=== PATIENT | female | born 1950 | race African-American/Black ===

== ENCOUNTER 2018-11-30 18:37 | Emergency (ER) | payer OTHER, BC ==
[2018-11-30] MEDS ORDERED: METHOCARBAMOL 500 MG TABLET PO ONE (19:24)
[2018-11-30] MEDS ORDERED: IBUPROFEN 600 MG TABLET (FP) PO ONE (19:24)
--- NOTE | 2018-11-30 19:24 | PDOC ---
Rapid Medical Evaluation Time Seen by Provider: 11/30/18 19:19 Medical Evaluation: Allergies Allergy/AdvReac Type Severity Reaction Status Date / Time tomato Allergy Verified 02/04/16 17:00 11/30/18 19:20 I have performed a brief in-person evaluation of this patient. The patient presents with a chief complaint of: L sided neck and shoulder pain for 3 days, which started after she was cleaning her closet on Monday. H/o arthritis, sciatica. No CP/SOB, no trauma/fall. Took 1 naprosyn at 5am, did not help with pain I have ordered the following: Motrin, robaxin The patient will proceed to the ED for further evaluation. Discharge Disposition - Diagnosis Muscle ache - Referrals - Patient Instructions - Post Discharge Activity
[2018-11-30 19:29] VITALS: BP 140/73; PULSE 66; TEMP 98.3; BMI 33.7
[2018-11-30] MEDS ORDERED: ACETAMINOPHEN 500 MG TABLET (FP) PO ONE (19:40)
[2018-11-30] MEDS ORDERED: LIDOCAINE 5% TOPICAL PATCH TP ONE (19:40)
[2018-11-30] MEDS ORDERED: ACETAMINOPHEN 500 MG TABLET (FP) ONE (19:42)
[2018-11-30] MEDS ORDERED: LIDOCAINE 5% TOPICAL PATCH ONE (19:42)
--- NOTE | 2018-11-30 19:49 | PDOC ---
History of Present Illness - General Chief Complaint: Pain Stated Complaint: NECK/SHOULDER PAIN Time Seen by Provider: 11/30/18 19:19 History Source: Patient - History of Present Illness Timing/Duration: other Past History - Past Medical History Allergies/Adverse Reactions: Allergies Allergy/AdvReac Type Severity Reaction Status Date / Time tomato Allergy Verified 11/30/18 19:24 Home Medications: Ambulatory Orders Atenolol/Chlorthalidone [Atenolol-Chlorthalidone 100-25] 1 tab PO HS 04/22/11 Norvasc 10mg 1 tab PO HS 04/22/11 Tylenol 325 mg PO PRN 04/22/11 Vitamins 1 tab PO DAILY 04/22/11 Mag Hydrox/Al Hydrox/Simeth [Mylanta Suspension -] 30 ml PO Q6H PRN #1 bottle Ranitidine HCl [Zantac] 150 mg PO BID PRN #20 tablet 10/30/15 Sucralfate [Carafate] 1 gm PO BID PRN #10 tablet 10/30/15 Acetaminophen [Tylenol -] 1,000 mg PO Q6H #30 tablet 11/30/18 Lidocaine 5% Patch [Lidoderm Patch -] 1 patch TP DAILY #7 patch 11/30/18 Anemia: No Asthma: No Cancer: No Cardiac Disorders: No CVA: No COPD: No CHF: No Dementia: No Diabetes: No GI Disorders: Yes (ABDOMINAL PAIN) Disorders: No HTN: Yes Hypercholesterolemia: No Liver Disease: No Seizures: No Thyroid Disease: No - Surgical History Abdominal Surgery: Yes (TUBAL LIGATION) Appendectomy: No Cardiac Surgery: Yes (BOTH ETES WITH IOL) Cholecystectomy: No Lung Surgery: Yes (LEAKY VALVE) Neurologic Surgery: No Orthopedic Surgery: No - Immunization History Immunization Up to Date: Yes - Psycho Social/Smoking Cessation Hx Smoking History: Never smoked Have you smoked in the past 12 months: No Hx Alcohol Use: No Drug/Substance Use Hx: No Substance Use Type: None Hx Substance Use Treatment: No Review of Systems - Review of Systems Constitutional: No: Chills, Fever Respiratory: No: Shortness of Breath Cardiac (ROS): No: Chest Pain Musculoskeletal: Yes: Joint Pain, Neck Pain. No: Joint Swelling Neurological: No: Numbness, Tingling, Weakness *Physical Exam - Vital Signs Last Vital Signs Temp Pulse Resp BP Pulse Ox 98.3 F 66 18 140/73 99 11/30/18 19:21 11/30/18 19:21 11/30/18 19:21 11/30/18 19:21 11/30/18 19:21 - Physical Exam General Appearance: Yes: Appropriately Dressed. No: Apparent Distress HEENT: positive: Normal Voice Neck: positive: Supple. negative: Tender, Decreased range of motion Respiratory/Chest: positive: Lungs Clear, Normal Breath Sounds. negative: Respiratory Distress Cardiovascular: positive: Regular Rate, S1, S2 Musculoskeletal: positive: Normal Inspection, Vertebral Tenderness, Other (ttp to L shoulderblade, no rash, FROMI to LUE and cspine) Extremity: positive: Normal Inspection Integumentary: positive: Dry, Warm Neurologic: positive: Fully Oriented, Alert, Normal Mood/Affect, Motor Strength 5/5 Medical Decision Making - Medical Decision Making 11/30/18 19:41 68-year-old female history of hypertension, hyperlipidemia, arthritis, tendinitis to L hand, here with L shoulder pain x several days. Hurts to move and lift on the L side. No trauma. No sensory changes or upper extremity weakness. Taking naproxen and gabapentin with no relief. No chest pain or shortness of breath See exam M/l MSK L shoulder pain H/o arthritis, tendinitis No trauma No CP/SOB Exam remarkable for + ttp over L shoulder blade -Dc w/ pain control -PMD f/u Discharge - Discharge Information Problems reviewed: Yes Clinical Impression/Diagnosis: Shoulder pain Qualifiers: Chronicity: acute Laterality: left Qualified Code(s): M25.512 - Pain in left shoulder Condition: Good Disposition: HOME - Additional Discharge Information Prescriptions: Acetaminophen [Tylenol -] 1,000 mg PO Q6H #30 tablet Lidocaine 5% Patch [Lidoderm Patch -] 1 patch TP DAILY #7 patch - Follow up/Referral Referrals: Mary Dietrich [Primary Care Provider] - - Patient Discharge Instructions Patient Printed Discharge Instructions: DI for Shoulder Pain Additional Instructions: Take medication as directed for pain and follow up with your PMD - Post Discharge Activity
[2018-11-30] MEDS ORDERED: LIDOCAINE PATCH REMOVAL MC SCH (22:00)
== END 2018-11-30 19:51 | disposition home or self-care (01) ==
LOC: JER 18:37 → JERFT 18:37
DX: M25.512 Pain in left shoulder (principal); M54.2 Cervicalgia; X50.1XXA Overexertion from prolonged static or awkward postures, initial encounter; Y93.E9 Activity, other interior property and clothing maintenance; Y92.038 Other place in apartment as the place of occurrence of the external cause; Y99.8 Other external cause status; I10 Essential (primary) hypertension; E78.5 Hyperlipidemia, unspecified; M12.9 Arthropathy, unspecified; Z91.018 Allergy to other foods
CPT/HCPCS: 99281-25

== ENCOUNTER 2018-12-12 08:16 | Day surgery (SDC) | payer OTHER, BC ==
[2018-12-11 14:45] VITALS: BMI 34.9
[2018-12-12 11:12] VITALS: TEMP 97.8
[2018-12-12 11:30] VITALS: PULSE 65
[2018-12-12 12:38] VITALS: BP 128/70
--- NOTE | 2018-12-13 17:23 | PATH ---
Surgical Pathology Report Patient Name: JILL MONTES [facility]. Rec. #: [id number] /Age/Gender: 1950 (Age: 68) / F Account: [id number] Location: ASU-ENDOSCOPY Taken: 12/12/2018 Received: 12/12/2018 Reported: 12/13/2018 Physicians: Nory Mccormack M.D. Specimen(s) Received A: DUODENUM, SECOND PORTION AND BULB B: ANTRAL ULCERS C: ESOPHAGUS Clinical History Dyspepsia, early satiety, history of colon polyps, family history of colon cancer, weight loss Postoperative diagnosis: Antral ulcers, hiatal hernia, Schatzki's ring, diverticulosis, hemorrhoids Final Diagnosis A. DUODENUM, SECOND PORTION AND BULB, BIOPSY: DUODENAL MUCOSA WITHOUT SIGNIFICANT PATHOLOGIC FINDINGS. B. STOMACH, ANTRAL ULCER, BIOPSY: GASTRIC ANTRAL MUCOSA WITH MILD CHRONIC GASTRITIS. IMMUNOHISTOCHEMICAL STAIN FOR H. PYLORI IS NEGATIVE. C. GE JUNCTION/ SCHATZKI'S RING, BIOPSY: SQUAMOCOLUMNAR MUCOSA WITH MILD CHRONIC INFLAMMATION AND CHANGES OF MODERATE REFLUX ESOPHAGITIS. NO INTESTINAL METAPLASIA OR DYSPLASIA IDENTIFIED. Electronically Signed Suzanne French M.D. Gross Description A. Received in formalin, labeled "second portion and bulb of duodenum biopsy" are 4 jovel, irregular portions of soft tissue ranging from 0.2-0.4 cm. in greatest dimension. The specimens are submitted in toto in one cassette. B. Received in formalin, labeled "antral ulcer biopsy" are 4 jovel, irregular portions of soft tissue ranging from 0.3-0.4 cm. in greatest dimension. The specimens are submitted in toto in one cassette. C. Received in formalin, labeled "GE junction/Schatzki's ring" are 3 jovel, irregular portions of soft tissue ranging from 0.3-0.4 cm. in greatest dimension. The specimens are submitted in toto in one cassette. 12/12/201812/12/2018
== END 2018-12-12 11:55 | disposition home or self-care (01) ==
LOC: JASU-ENDO 08:16
PROVIDERS: ATTEND Internal Medicine Gastroenterology
PROC: 0DB48ZX Excision of Esophagogastric Junction, Via Natural or Artificial Opening Endoscopic, Diagnostic (ICD-10-PCS; 2018-12-12)
PROC: 0DB68ZX Excision of Stomach, Via Natural or Artificial Opening Endoscopic, Diagnostic (ICD-10-PCS; 2018-12-12)
PROC: 0DJD8ZZ Inspection of Lower Intestinal Tract, Via Natural or Artificial Opening Endoscopic (ICD-10-PCS; principal; 2018-12-12 09:45)
DX: Z12.11 Encounter for screening for malignant neoplasm of colon (principal); Z86.010 Personal history of colon polyps; Z80.0 Family history of malignant neoplasm of digestive organs; K57.30 Diverticulosis of large intestine without perforation or abscess without bleeding; K64.8 Other hemorrhoids; K22.2 Esophageal obstruction; K44.9 Diaphragmatic hernia without obstruction or gangrene; K21.9 Gastro-esophageal reflux disease without esophagitis; K25.9 Gastric ulcer, unspecified as acute or chronic, without hemorrhage or perforation; I10 Essential (primary) hypertension; E66.9 Obesity, unspecified
CPT/HCPCS: 43239; G0105

== ENCOUNTER 2018-12-19 03:46 | Observation (INO) | payer OTHER, BC ==
--- NOTE | 2018-12-19 04:17 | PDOC ---
Attending Attestation - Resident Resident Name: PascualejAp scott - ED Attending Attestation I have performed the following: I have examined & evaluated the patient, The case was reviewed & discussed with the resident, I agree w/resident's findings & plan - HPI HPI: 12/19/18 05:53 see resident hpi - Physicial Exam PE: 12/19/18 05:53 agree with resident exam - Medical Decision Making 12/19/18 05:53 68-year-old female with intermittent chest pains, right now left status post endoscopy 1 week ago Due to patient's history of hypertension and patient's age she will be held for observation A CTA of the chest has been ordered due to dyspnea noted on exertion in the emergency department Plan to admit to medical service
[2018-12-19] MEDS ORDERED: FAMOTIDINE 20 MG/50 ML IVPB 20 MG/50 ML MG IVPB ONE ×2 (04:19→04:31)
[2018-12-19] MEDS ORDERED: SODIUM CHLORIDE 1,000 ML IV STA (04:20)
--- NOTE | 2018-12-19 04:25 | PDOC ---
History of Present Illness - History of Present Illness Initial Comments: 12/19/18 04:21 Ms. Huynh is a 68 yo female w/ pmh of HTN and HLD who presents for evaluation of chest pain. Patient reports she began to have right sided chest pain following an endoscopy last week w/ GI Dr. Mccormack (w/ resultant ulcer identified). Patient reports symptoms persisted until 2 days ago when they "switched to the left side." Patient presents today as symptoms were worse when she woke up this morning at approximately 1am. Patient was provided with pantoprazole 40mg post procedure however has not taken it until yesterday. The patient denies shortness of breath, headache and dizziness. Denies fever, chills, nausea, vomit, diarrhea and constipation. Denies dysuria, frequency, urgency and hematuria. <Ap Whitlock - Last Filed: 12/19/18 07:08> <Eliel Pulliam - Last Filed: 12/19/18 08:39> - General Stated Complaint: CHEST DISCOMFORT/NAUSEA Time Seen by Provider: 12/19/18 04:17 Past History - Past Medical History Anemia: No Asthma: No Cancer: No Cardiac Disorders: No CVA: No COPD: No CHF: No Dementia: No Diabetes: No GI Disorders: Yes (COLON POLYPS, H.PYLORI GASTRITIS) Disorders: No HTN: Yes Hypercholesterolemia: Yes Liver Disease: No Seizures: No Thyroid Disease: No - Surgical History Abdominal Surgery: Yes (TUBAL LIGATION) Appendectomy: No Cardiac Surgery: No Cholecystectomy: No Lung Surgery: No Neurologic Surgery: No Orthopedic Surgery: No - Immunization History Immunization Up to Date: Yes - Psycho Social/Smoking Cessation Hx Smoking History: Never smoked Have you smoked in the past 12 months: No Hx Alcohol Use: No Drug/Substance Use Hx: No Substance Use Type: None Hx Substance Use Treatment: No <Ap Whitlock - Last Filed: 12/19/18 07:08> <Eliel Pulliam - Last Filed: 12/19/18 08:39> - Past Medical History Allergies/Adverse Reactions: Allergies Allergy/AdvReac Type Severity Reaction Status Date / Time tomato Allergy Verified 12/19/18 04:41 Home Medications: Ambulatory Orders Amlodipine Besylate [Norvasc -] 10 mg PO DAILY 12/11/18 Atenolol [Tenormin -] 100 mg PO DAILY 12/11/18 Fenofibrate Nanocrystallized [Fenofibrate] 48 mg PO HS 12/11/18 Review of Systems - Review of Systems Comments:: 12/19/18 04:28 GENERAL/CONSTITUTIONAL: No fever or chills. No weakness. HEAD, EYES, EARS, NOSE AND THROAT: No change in vision. No ear pain or discharge. No sore throat. CARDIOVASCULAR: +Chest pain as described. No shortness of breath RESPIRATORY: No cough, wheezing, or hemoptysis. GASTROINTESTINAL: No nausea, vomiting, diarrhea or constipation. GENITOURINARY: No dysuria, frequency, or change in urination. MUSCULOSKELETAL: No joint or muscle swelling or pain. No neck or back pain. SKIN: No rash NEUROLOGIC: No headache, vertigo, loss of consciousness, or change in strength/ sensation. ENDOCRINE: No increased thirst. No abnormal weight change HEMATOLOGIC/LYMPHATIC: No anemia, easy bleeding, or history of blood clots. ALLERGIC/IMMUNOLOGIC: No hives or skin allergy. <Ap Whitlock - Last Filed: 12/19/18 07:08> *Physical Exam - Physical Exam Comments: 12/19/18 04:28 GENERAL: Awake, alert, and fully oriented, in no acute distress HEAD: No signs of trauma, normocephalic, atraumatic EYES: PERRLA, EOMI, sclera anicteric, conjunctiva clear ENT: Auricles normal inspection, hearing grossly normal, nares patent, oropharynx clear without exudates. Moist mucosa NECK: Normal ROM, supple, no lymphadenopathy, JVD, or masses LUNGS: No distress, speaks full sentences, clear to auscultation bilaterally HEART: Regular rate and rhythm, normal S1 and S2, no murmurs, rubs or gallops, peripheral pulses normal and equal bilaterally. ABDOMEN: Soft, nontender, normoactive bowel sounds. No guarding, no rebound. No masses EXTREMITIES: Normal inspection, Normal range of motion, no edema. No clubbing or cyanosis. NEUROLOGICAL: Cranial nerves II through XII grossly intact. Normal speech, normal gait, no focal sensorimotor deficits SKIN: Warm, Dry, normal turgor, no rashes or lesions noted. <Ap Whitlock - Last Filed: 12/19/18 07:08> - Vital Signs Last Vital Signs Temp Pulse Resp BP Pulse Ox 98.1 F 64 18 164/71 100 12/19/18 04:34 12/19/18 06:59 12/19/18 06:59 12/19/18 06:59 12/19/18 06:59 <Eliel Pulliam - Last Filed: 12/19/18 08:39> ED Treatment Course - LABORATORY CBC & Chemistry Diagram: 12/19/18 04:30 12/19/18 04:30 <Ap Whitlock - Last Filed: 12/19/18 07:08> - LABORATORY CBC & Chemistry Diagram: 12/19/18 04:30 12/19/18 04:30 - ADDITIONAL ORDERS Additional order review: Laboratory Results 12/19/18 12/19/18 04:30 04:30 PT with INR 11.80 INR 1.00 PTT (Actin FS) 30.5 Sodium 142 Potassium 3.2 L Chloride 107 Carbon Dioxide 26 Anion Gap 9 BUN 9.4 Creatinine 0.9 Est GFR (CKD-EPI)AfAm 75.61 Est GFR (CKD-EPI)NonAf 65.24 Random Glucose 107 H Calcium 8.3 L Total Bilirubin 0.4 AST 13 L ALT 14 Alkaline Phosphatase 71 Creatine Kinase 109 Troponin I < 0.02 Total Protein 6.7 Albumin 3.6 12/19/18 04:30 RBC 4.28 MCV 88.5 MCHC 32.8 RDW 13.4 MPV 9.0 Neutrophils % 59.6 D Lymphocytes % 28.5 D Monocytes % 7.9 Eosinophils % 2.6 Basophils % 1.4 - Medications Given in the ED: ED Medications Discontinued Medications Generic Name Dose Route Start Last Admin Trade Name Brijeshq PRN Reason Stop Dose Admin Famotidine/Sodium Chloride 20 mg in 50 mls @ 100 mls/hr 12/19/18 04:19 04:41 Pepcid 20 Mg Premixed Ivpb - IVPB 12/19/18 04:48 100 mls/hr ONCE ONE Administration Sodium Chloride 1,000 mls @ 1,000 mls/hr 12/19/18 04:20 12/19/18 04:41 Normal Saline - IV 12/19/18 05:19 1,000 mls/hr ASDIR STA Administration <Eliel Pulliam - Last Filed: 12/19/18 08:39> Medical Decision Making - Medical Decision Making 12/19/18 04:56 Ms. Huynh is a 68 yo female w/ pmh as described who presents for evaluation of several day history of migrating chest pain in the setting of recent endoscopic procedure and medication non-compliance for identified ulcer. Will evaluate patient for cardiac cause of pain w/ cardiac labs, EKG, and CXR for r/o sequelae from procedure. Medication given for suspected gastric etiology. Patient EKG normal sinus rhythm. Prolonged QT at 485 QTc. Further evaluation pending. 12/19/18 05:29 Patient noted to be very short of breath following trip to bathroom. Decision made to evaluate with Chest CTA given recent procedure. 12/19/18 06:40 Patient labs grossly wnl. Patient exam pending chest CTA read for further dispo. 12/19/18 07:07 Patient signed out to Dr. Pulliam for further evaluation. <Ap Whitlock - Last Filed: 12/19/18 07:08> Discharge - Discharge Information Problems reviewed: Yes <Ap Whitlock - Last Filed: 12/19/18 07:08> - Discharge Information Problems reviewed: Yes - Admission Yes <Eliel Pulliam - Last Filed: 12/19/18 08:39> - Discharge Information Clinical Impression/Diagnosis: Chest pain Qualifiers: Chest pain type: unspecified Qualified Code(s): R07.9 - Chest pain, unspecified Condition: Fair - Follow up/Referral Referrals: Mary Dietrich [Primary Care Provider] - - Patient Discharge Instructions - Post Discharge Activity
[2018-12-19 04:52] LABS: BASO % 1.4 % (0-2.0); EOS % 2.6 % (0-4.5); HEMATOCRIT 37.9 % (32.4-45.2); HEMOGLOBIN 12.4 GM/dL (10.7-15.3); LYMPH % 28.5 % (8-40); MCHC 32.8 g/dl (32.0-36.0); MEAN CELL VOLUME 88.5 fl (80-96); MONO % 7.9 % (3.8-10.2); NEUT % 59.6 % (42.8-82.8); PLATELET COUNT 230 K/MM3 (134-434); RBC 4.28 M/mm3 (3.60-5.2); RDW 13.4 % (11.6-15.6); WHITE BLOOD COUNT 8.3 K/mm3 (4.0-10.0)
[2018-12-19 05:09] LABS: PROTHROMBIN TIME (PATIENT) 11.8 SEC (9.7-13.0)
[2018-12-19 05:12] LABS: ACTIVATED PTT 30.5 SECONDS (25.2-36.5)
[2018-12-19 06:09] LABS: ALBUMIN 3.6 g/dl (3.4-5.0); ALK PHOS 71 U/L (45-117); ANION GAP 9 MMOL/L (8-16); BILIRUBIN,TOTAL 0.4 mg/dL (0.2-1); BLOOD UREA NITROGEN 9.4 mg/dL (7-18); CALCIUM 8.3 mg/dL (8.5-10.1); CHLORIDE 107 mmol/L (98-107); CO2 26 mmol/L (21-32); CREATININE 0.9 mg/dL (0.55-1.3); GLUCOSE,RANDOM 107 mg/dL (74-106); POTASSIUM 3.2 mmol/L (3.5-5.1); SGOT/AST 13 U/L (15-37); SGPT/ALT 14 U/L (13-61); SODIUM 142 mmol/L (136-145); TOT PROT 6.7 g/dl (6.4-8.2)
--- NOTE | 2018-12-19 09:23 | HP ---
CHIEF COMPLAINT: chest pain PCP: Dr. Dietrich HISTORY OF PRESENT ILLNESS: 68F w/ pmhx of HTN, HLD, arthritis presents in the ED for chest pain. Pt states pain started on the R side yesterday morning after eating breakfast and was intermittent throughout the day lasting 10 min at time. Pain then traveled to the left side after eating baked chicken for dinner. States she woke up at 1am last night due to L sided chest pain after which she took 2 baby aspirin and showered to try and alleviate the pain. It persisted intermittently throughout the rest of the night. Pt admits to having similar left sided chest pain in the past about 6 months ago, but did not have it evaluated back then as it did not persist. Of note, she recently underwent an EGD and colonoscopy 1 week ago and was told she had stomach ulcers. Pt was advised by Dr. 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 Additionally, she admits to some difficulty swallowing since her procedure last week and has been mainly eating apple sauce. Admits to mild headache and mild sob due to the chest pain. Also admits to some mild abd discomfort due to gas/constipation, last bowel movement was prior to colonoscopy. Denies dizziness, f/c, urinary symptoms. 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, former patient care secretary Lives with son in apt Allergies tomato Allergy (Verified 12/19/18 04:41) HOME MEDICATIONS: Home Medications Medication Instructions Recorded Amlodipine Besylate [Norvasc -] 10 mg PO DAILY 12/11/18 Atenolol [Tenormin -] 100 mg PO DAILY 12/11/18 Fenofibrate Nanocrystallized 48 mg PO HS 12/11/18 [Fenofibrate] Gabapentin 600 mg PO BID 12/19/18 Pantoprazole Sodium 40 mg PO DAILY 12/19/18 REVIEW OF SYSTEMS CONSTITUTIONAL: Absent: fever, chills, diaphoresis, generalized weakness, malaise, loss of appetite, weight change HEENT: +difficulty swallowing Absent: rhinorrhea, nasal congestion, throat pain, throat swelling, mouth swelling, ear pain, eye pain, visual changes CARDIOVASCULAR: +chest pain Absent: syncope, palpitations, irregular heart rate, lightheadedness, peripheral edema RESPIRATORY: +shortness of breath Absent: cough, , dyspnea with exertion, orthopnea, wheezing, stridor, hemoptysis GASTROINTESTINAL: Absent: abdominal pain, abdominal distension, nausea, vomiting, diarrhea, constipation, melena, hematochezia GENITOURINARY: Absent: dysuria, frequency, urgency, hesitancy, hematuria, flank pain, genital pain MUSCULOSKELETAL: Absent: myalgia, arthralgia, joint swelling, back pain, neck pain ENDOCRINE: Absent: unexplained weight gain, unexplained weight loss, heat intolerance, cold intolerance NEUROLOGIC: Absent: headache, focal weakness or paresthesias, dizziness, unsteady gait, seizure, mental status changes, bladder or bowel incontinence PHYSICAL EXAMINATION Vital Signs - 24 hr 12/19/18 12/19/18 04:34 06:59 Temperature 98.1 F Pulse Rate 69 Pulse Rate [ 64 Left Radial] Respiratory 15 18 Rate Blood Pressure 166/52 L Blood Pressure 164/71 [Left Arm] O2 Sat by Pulse 99 100 Oximetry (%) GENERAL: AAOx3. Pleasant, well-appearing female. NAD. HEENT: AT/NC. EOMI. MMM. Enlarged tonsils bilaterally. No pharyngeal erythema. NECK: Normal range of motion, supple without lymphadenopathy, JVD, or masses. LUNGS: CTA B/L. Symmetric chest rise. No wheezes, rales, rhonchi noted. HEART: RRR. Normal S1, S2. No murmurs noted. No reproducible chest tenderness. ABDOMEN: Obese. Soft, NT/ND. Normoactive bowel sounds in all 4Q's. MUSCULOSKELETAL: Normal range of motion at all joints. No bony deformities or tenderness. No CVA tenderness. EXTREMITIES: No peripheral edema noted. NEUROLOGICAL: Cranial nerves II-XII intact. Normal speech. Facial symmetry noted. SKIN: Warm, dry, normal turgor, no rashes or lesions noted, normal capillary refill. Laboratory Results - last 24 hr 12/19/18 12/19/18 12/19/18 04:30 04:30 04:30 WBC 8.3 RBC 4.28 Hgb 12.4 Hct 37.9 MCV 88.5 MCH 29.0 MCHC 32.8 RDW 13.4 Plt Count 230 MPV 9.0 Absolute Neuts (auto) 5.0 Neutrophils % 59.6 D Lymphocytes % 28.5 D Monocytes % 7.9 Eosinophils % 2.6 Basophils % 1.4 Nucleated RBC % 0 PT with INR 11.80 INR 1.00 PTT (Actin FS) 30.5 Sodium 142 Potassium 3.2 L Chloride 107 Carbon Dioxide 26 Anion Gap 9 BUN 9.4 Creatinine 0.9 Est GFR (CKD-EPI)AfAm 75.61 Est GFR (CKD-EPI)NonAf 65.24 Random Glucose 107 H Calcium 8.3 L Total Bilirubin 0.4 AST 13 L ALT 14 Alkaline Phosphatase 71 Creatine Kinase 109 Troponin I < 0.02 Total Protein 6.7 Albumin 3.6 IMAGING: * CTA- unremarkable ASSESSMENT/PLAN: 68F w/ pmhx of HTN, HLD, PUD, arthritis presents in the ED for chest pain, r/o ACS. #Chest pain, r/o ACS; Stable, intermittent chest pain -trops neg x1, serial trops -EKG showed NSR, HR 62, flattened T waves, prolonged QTc 485 ms -Echo ordered -Cardio consulted -admit to tele obs -Nitroglycerin PRN for chest pain #Hypokalemia; K 3.2 today -PO KCl given x1, will recheck K in AM #PUD; Cont home med: Pantoprazole 40 QD #HTN; Cont home meds: Atenlolol 100 QD, Norvasc 10 QD #HLD; Cont home meds: Fenofibrate 48 QD #Hx of arthitis; Cont home med: Gabapentin 600 BID #Prophylaxis -DVT: Lovenox -GI: Cont home Protonix #FEN -PO hydration -recheck lytes in AM -low-sodium diet Dispo -Admit to tele obs -Medications have been reconciled Visit type - Emergency Visit Emergency Visit: Yes ED Registration Date: 12/19/18 Care time: The patient presented to the Emergency Department on the above date and was hospitalized for further evaluation of their emergent condition. - New Patient This patient is new to me today: Yes Date on this admission: 12/19/18 - Critical Care Critical Care patient: No ATTENDING PHYSICIAN STATEMENT I saw and evaluated the patient. I reviewed the resident's note and discussed the case with the resident. I agree with the resident's findings and plan as documented. SUBJECTIVE: OBJECTIVE: ASSESSMENT AND PLAN:
[2018-12-19] MEDS ORDERED: NITROGLYCERIN SUBLINGUAL 1/200 0.3 MG BTL SL PRN (09:30)
--- NOTE | 2018-12-19 09:45 | EKG ---
Test Reason : Blood Pressure : / mmHG Vent. Rate : 062 BPM Atrial Rate : 062 BPM P-R Int : 144 ms QRS Dur : 078 ms QT Int : 478 ms P-R-T Axes : 049 048 050 degrees QTc Int : 485 ms NORMAL SINUS RHYTHM NONSPECIFIC T WAVE ABNORMALITY PROLONGED QT ABNORMAL ECG WHEN COMPARED WITH ECG OF 04-FEB-2016 23:43, NO SIGNIFICANT CHANGE WAS FOUND Confirmed by BARB HUI, CHRISS ([id number]) on 12/19/2018 9:45:15 AM Referred By: Confirmed By:CHRISS DAY MD
[2018-12-19] MEDS ORDERED: NITROGLYCERIN SUBLINGUAL 1/150 0.4 MG TAB SL PRN (11:05)
[2018-12-19] MEDS ORDERED: POTASSIUM CHLORIDE TABS 20 MEQ TABLET.ER (FP) PO ONE ×2 (11:45→12:38)
--- NOTE | 2018-12-19 12:27 | CON.CARD ---
Consult Consult Specialty:: Cardiology - History of Present Illness Chief Complaint: cp History of Present Illness: 68F w/ pmhx of HTN, HLD, arthritis presents in the ED for chest pain. Pt states pain started on the R side yesterday morning after eating breakfast and was intermittent throughout the day lasting 10 min at time. Pain then traveled to the left side after eating baked chicken for dinner. States she woke up at 1am last night due to L sided chest pain after which she took 2 baby aspirin and showered to try and alleviate the pain. It persisted intermittently throughout the rest of the night. Pt admits to having similar left sided chest pain in the past about 6 months ago, but did not have it evaluated back then as it did not persist. Of note, she recently underwent an EGD and colonoscopy 1 week ago and was told she had stomach ulcers. Pt was advised by Dr. Mccormack to take Pantoprazole daily, however she did not start taking it until yesterday since she did not feel well enough to leave the house earlier to pick out hand her prescription. Additionally, she admits to some difficulty swallowing since her procedure last week and has been mainly eating apple sauce. Admits to mild headache and mild sob due to the chest pain. Also admits to some mild abd discomfort due to gas/constipation, last bowel movement was prior to colonoscopy. Denies dizziness, f/c, urinary symptoms. ER course was notable for: (1) BP 166/52, K 3.2, trops neg x1, EKG showed NSR, QTc prolongation 485, T wave flattening (2) IV Pepcid (3) CTA neg - History Source History Provided By: Patient, Medical Record - Past Medical History Cardio/Vascular: Yes: HTN, Hyperlipdemia - Alcohol/Substance Use Hx Alcohol Use: No - Smoking History Smoking history: Never smoked Have you smoked in the past 12 months: No Home Medications - Allergies Allergies/Adverse Reactions: Allergies Allergy/AdvReac Type Severity Reaction Status Date / Time tomato Allergy Verified 12/19/18 04:41 - Home Medications Home Medications: Ambulatory Orders Amlodipine Besylate [Norvasc -] 10 mg PO DAILY 12/11/18 Atenolol [Tenormin -] 100 mg PO DAILY 12/11/18 Fenofibrate Nanocrystallized [Fenofibrate] 48 mg PO HS 12/11/18 Gabapentin 600 mg PO BID 12/19/18 Pantoprazole Sodium 40 mg PO DAILY 12/19/18 Review of Systems - Review of Systems Constitutional: reports: No Symptoms Eyes: reports: No Symptoms HENT: reports: No Symptoms Neck: reports: No Symptoms Cardiovascular: reports: Chest Pain Respiratory: reports: No Symptoms Gastrointestinal: reports: No Symptoms Genitourinary: reports: No Symptoms Breasts: reports: No Symptoms Reported Musculoskeletal: reports: No Symptoms Integumentary: reports: No Symptoms Neurological: reports: No Symptoms Endocrine: reports: No Symptoms Hematology/Lymphatic: reports: No Symptoms Psychiatric: reports: No Symptoms Vital Signs: Vital Signs Temperature 98.1 F 12/19/18 04:34 Pulse Rate 64 12/19/18 06:59 Respiratory Rate 18 12/19/18 06:59 Blood Pressure 164/71 12/19/18 06:59 O2 Sat by Pulse Oximetry (%) 100 12/19/18 06:59 Constitutional: Yes: Well Nourished, No Distress, Calm Eyes: Yes: WNL, Conjunctiva Clear, EOM Intact HENT: Yes: WNL, Atraumatic, Normocephalic Neck: Yes: WNL, Supple, Trachea Midline Respiratory: Yes: WNL, Regular, CTA Bilaterally Gastrointestinal: Yes: WNL, Normal Bowel Sounds Renal/: Yes: WNL Cardiovascular: Yes: WNL, Regular Rate and Rhythm Musculoskeletal: Yes: WNL Extremities: Yes: WNL Integumentary: Yes: WNL Neurological: Yes: WNL, Alert, Oriented ...Motor Strength: WNL Psychiatric: Yes: WNL, Alert, Oriented - Other Data Labs, Other Data: CBC, BMP 12/19/18 04:30 12/19/18 04:30 INR, PTT INR 1.00 (0.83-1.09) 12/19/18 04:30 Troponin, BNP 12/19/18 12/19/18 04:30 10:25 Troponin I < 0.02 < 0.02 Troponin, BNP 12/19/18 12/19/18 04:30 10:25 Troponin I < 0.02 < 0.02 Imaging - Results EKG: Image Reviewed (sr rep abn qtc prolongation) Problem List - Problems (1) Chest pain Code(s): R07.9 - CHEST PAIN, UNSPECIFIED Qualifiers: Chest pain type: unspecified Qualified Code(s): R07.9 - Chest pain, unspecified (2) Abdominal pain Code(s): R10.9 - UNSPECIFIED ABDOMINAL PAIN (3) Gastritis Code(s): K29.70 - GASTRITIS, UNSPECIFIED, WITHOUT BLEEDING Qualifiers: Gastritis type: unspecified gastritis Chronicity: acute Gastritis bleeding: without bleeding Qualified Code(s): K29.00 - Acute gastritis without bleeding (4) Shoulder pain Code(s): M25.519 - PAIN IN UNSPECIFIED SHOULDER Qualifiers: Chronicity: acute Laterality: left Qualified Code(s): M25.512 - Pain in left shoulder Assessment/Plan cp sx r/o mi neg hypokalemia QTC prolongation htn hlp Plan; supplement K repeat ekg ECHO MIBI stress test
[2018-12-19] MEDS: GABAPENTIN 300 MG CAPSULE (FP) PO SCH ×2 (12:30→21:57)
[2018-12-19] MEDS: amLODIPine BESYLATE 10 MG TABLET (FP) PO SCH (12:30)
[2018-12-19] MEDS: ENOXAPARIN NA (PORCINE) 40 MG/0.4 ML DISP.SYRIN SQ SCH (12:30)
[2018-12-19] MEDS: PANTOPRAZOLE 40 MG TABLET (FP) PO SCH (12:37)
[2018-12-19] MEDS: ATENOLOL 50 MG TABLET (FP) PO SCH (12:38)
--- NOTE | 2018-12-19 13:03 | ECHO ---
Name: JILL MONTES Exam:Adult Echocardiogram Study Date: 12/19/2018 09:40 AM Age: 68 yrs Reason For Study: LV Function Height: 59 in Weight: 170 lb BSA: 1.7 m2 MMode/2D Measurements & Calculations IVSd: 1.0 cm Ao root diam: 2.6 cm LVIDd: 4.7 cm LA dimension: 3.7 cm LVIDs: 2.7 cm LVPWd: 1.0 cm EDV(Teich): 101.2 ml LVOT diam: 2.0 cm ESV(Teich): 26.6 ml LAV (MOD-bp): 81.5 ml Doppler Measurements & Calculations MV E max christian: 73.7 cm/sec Ao V2 max: 172.4 cm/sec MV A max christian: 94.6 cm/sec Ao max P.9 mmHg MV E/A: 0.78 AI P1/2t: 1479 msec MV dec time: 0.24 sec FERDINAND(V,D): 2.1 cm2 AI max christian: 168.3 cm/sec LV V1 max P.9 mmHg AI max P.3 mmHg LV V1 max: 121.3 cm/sec AI dec slope: 33.3 cm/sec2 MR max christian: 580.4 cm/sec TR max christian: 238.1 cm/sec MR max P.0 mmHg TR max P.9 mmHg PA V2 max: 104.5 cm/sec Med Peak E' Christian: 4.8 cm/sec PA max P.4 mmHg Med E/e': 15.4 Lat Peak E' Christian: 7.0 cm/sec Lat E/e': 10.6 PI Vmax: 156.1 cm/sec Procedure A two-dimensional transthoracic echocardiogram with color flow and Doppler was performed. Left Ventricle The left ventricular size, thickness and function are normal. The left ventricular ejection fraction is normal. E/A reversal consistent with but not diagnostic of poor LV compliance. The left ventricular w all motion is normal. Right Ventricle The right ventricle is normal in size and function. Atria Normal left and right atrial size and function. Mitral Valve There is mild mitral valve thickening. There is no mitral valve stenosis. There is trace to mild mitr al regurgitation. Tricuspid Valve The tricuspid valve is not well visualized, but is grossly normal. There is no tricuspid stenosis. Th ere is Trace to mild tricuspid regurgitation. Right ventricular systolic pressure is normal. Aortic Valve The aortic valve is normal in structure and function. No hemodynamically significant valvular aortic stenosis. Trace aortic regurgitation. Pulmonic Valve The pulmonic valve is not well visualized. There is no pulmonic valvular stenosis. Trace to mild pulm onic valvular regurgitation. Great Vessels The aortic root is normal size. Pericardium/Pleura There is no pericardial effusion. Interpretation Summary There is trace to mild mitral regurgitation. There is Trace to mild tricuspid regurgitation. Right ventricular systolic pressure is normal. Trace aortic regurgitation. E/A reversal consistent with but not diagnostic of poor LV compliance The left ventricular size, thickness and function are normal The left ventricular ejection fraction is normal. The left ventricular wall motion is normal. MD Dipesh Dean 12/19/2018 01:02 PM
--- NOTE | 2018-12-19 20:25 | PN ---
Teaching Attending Note Name of Resident: Cynthia Swenson ATTENDING PHYSICIAN STATEMENT I saw and evaluated the patient. I reviewed the resident's note and discussed the case with the resident. I agree with the resident's findings and plan as documented. SUBJECTIVE: Complains of mild epigastric discomfort. No palpitations/ diaphoresis. OBJECTIVE: Afebrile, Hemodynamically Stable. Last Vital Signs Temp Pulse Resp BP Pulse Ox 98.1 F 63 18 141/71 98 12/19/18 04:34 12/19/18 19:16 12/19/18 19:16 12/19/18 19:16 12/19/18 19:16 HEENT - Atraumatic, Normocephalic. Heart - S1, S2, RRR Lungs - clear to auscultation Abdomen - soft, mild epigastric tenderness. Bowel Sounds normal. Extremities - no edema, no calf tenderness. Laboratory Results - last 24 hr 12/19/18 12/19/18 12/19/18 04:30 04:30 04:30 WBC 8.3 RBC 4.28 Hgb 12.4 Hct 37.9 MCV 88.5 MCH 29.0 MCHC 32.8 RDW 13.4 Plt Count 230 MPV 9.0 Absolute Neuts (auto) 5.0 Neutrophils % 59.6 D Lymphocytes % 28.5 D Monocytes % 7.9 Eosinophils % 2.6 Basophils % 1.4 Nucleated RBC % 0 PT with INR 11.80 INR 1.00 PTT (Actin FS) 30.5 Sodium 142 Potassium 3.2 L Chloride 107 Carbon Dioxide 26 Anion Gap 9 BUN 9.4 Creatinine 0.9 Est GFR (CKD-EPI)AfAm 75.61 Est GFR (CKD-EPI)NonAf 65.24 Random Glucose 107 H Calcium 8.3 L Total Bilirubin 0.4 AST 13 L ALT 14 Alkaline Phosphatase 71 Creatine Kinase 109 Troponin I < 0.02 Total Protein 6.7 Albumin 3.6 12/19/18 12/19/18 10:25 16:35 WBC RBC Hgb Hct MCV MCH MCHC RDW Plt Count MPV Absolute Neuts (auto) Neutrophils % Lymphocytes % Monocytes % Eosinophils % Basophils % Nucleated RBC % PT with INR INR PTT (Actin FS) Sodium Potassium Chloride Carbon Dioxide Anion Gap BUN Creatinine Est GFR (CKD-EPI)AfAm Est GFR (CKD-EPI)NonAf Random Glucose Calcium Total Bilirubin AST ALT Alkaline Phosphatase Creatine Kinase Troponin I < 0.02 < 0.02 Total Protein Albumin Current Medications Generic Name Dose Route Start Last Admin Trade Name Freq PRN Reason Stop Dose Admin Amlodipine Besylate 10 mg 12/19/18 10:00 12/19/18 12:30 Norvasc - PO 10 mg DAILY EDUIN Administration Atenolol 100 mg 12/19/18 10:00 12/19/18 12:38 Tenormin - PO 100 mg DAILY EDUIN Administration Enoxaparin Sodium 40 mg 12/19/18 10:00 12/19/18 12:30 Lovenox - SQ 40 mg DAILY EDUIN Administration Fenofibric Acid 45 mg 12/19/18 22:00 Trilipix - PO HS EDUIN Gabapentin 600 mg 12/19/18 10:00 12/19/18 12:30 Neurontin - PO 600 mg BID EDUIN Administration Nitroglycerin 0.4 mg 12/19/18 11:05 Nitrostat - SL Q5M PRN FOR CHEST PAIN Pantoprazole Sodium 40 mg 12/19/18 10:00 12/19/18 12:37 Protonix - PO 40 mg DAILY EDUIN Administration Home Medications Medication Instructions Recorded Amlodipine Besylate [Norvasc -] 10 mg PO DAILY 12/11/18 Atenolol [Tenormin -] 100 mg PO DAILY 12/11/18 Fenofibrate Nanocrystallized 48 mg PO HS 12/11/18 [Fenofibrate] Gabapentin 600 mg PO BID 12/19/18 Pantoprazole Sodium 40 mg PO DAILY 12/19/18 ASSESSMENT/PLAN: 68 year old female with history of HTN, HLD, OA, PUD (recently diagnosed on EGD) , presents with non-specific chest pain, appears to be related to food intake. She was recently diagnosed with PUD and prescribed PPI but is yet to comply. 1. Atypical Chest Pain, with associated SOB - intermittent, related to food intake, likely due to PUD CTA chest - no PE, no acute cardiopulmonary findings. TropI neg, ECG - SR, no acute changes. Echo and Cardio consult requested. Teleobservation. Resumed on PPI as prescribed by GI. Nitro PRN 2. Hypokalemia - repleted. 3. HTN - continue Atenolol, Norvasc. 4. HLD - continue Fenofibrate. DVT Px - Lovenox SQ
[2018-12-19] MEDS ORDERED: FENOFIBRIC ACID 45 MG CAP PO SCH (22:00)
[2018-12-20 07:10] LABS: HEMATOCRIT 37.9 % (32.4-45.2); HEMOGLOBIN 13.2 GM/dL (10.7-15.3); MCH 30.4 pg (25.7-33.7); MCHC 34.8 g/dl (32.0-36.0); MEAN CELL VOLUME 87.2 fl (80-96); PLATELET COUNT 262 K/MM3 (134-434); RBC 4.35 M/mm3 (3.60-5.2); RDW 13.4 % (11.6-15.6); WHITE BLOOD COUNT 8.1 K/mm3 (4.0-10.0)
[2018-12-20 07:26] VITALS: BMI 34.3
[2018-12-20] MEDS ORDERED: INSULIN (NOVOLOG) ASPART 100 UNITS/ML 10ML VIAL ONE (07:57)
[2018-12-20 08:05] LABS: ALBUMIN 3.7 g/dl (3.4-5.0); BILIRUBIN,TOTAL 0.6 mg/dL (0.2-1); BLOOD UREA NITROGEN 9.9 mg/dL (7-18); CALCIUM 8.7 mg/dL (8.5-10.1); CREATININE 0.8 mg/dL (0.55-1.3); TOT PROT 6.8 g/dl (6.4-8.2)
[2018-12-20] MEDS: amLODIPine BESYLATE 10 MG TABLET (FP) PO SCH ×2 (08:08→17:31)
[2018-12-20] MEDS ORDERED: REGADENOSON 0.4 MG/5 ML PRE-FILLED SYRINGE IVPUSH ONE ×2 (13:10→13:15)
--- NOTE | 2018-12-20 15:04 | PN ---
Teaching Attending Note Name of Resident: Merry Ji ATTENDING PHYSICIAN STATEMENT I saw and evaluated the patient. I reviewed the resident's note and discussed the case with the resident. I agree with the resident's findings and plan as documented. SUBJECTIVE: No further chest pain. No palpitations/diaphoresis. Reports several month history of abnormal gait - veering off to the left side, with no focal limb weakness. OBJECTIVE: Afebrile, Hemodynamically Stable. Last Vital Signs Temp Pulse Resp BP Pulse Ox 98 F 62 18 160/83 98 12/20/18 08:14 12/20/18 08:14 12/20/18 08:14 12/20/18 08:14 12/20/18 01:00 Heart - S1, S2, RRR Lungs - clear to auscultation Abdomen - soft, mild epigastric tenderness. Bowel Sounds normal. Extremities - no edema, no calf tenderness. Neuro - Some mild coordination impairment LLE. Laboratory Results - last 24 hr 12/19/18 12/20/18 12/20/18 16:35 06:30 06:30 WBC 8.1 RBC 4.35 Hgb 13.2 Hct 37.9 MCV 87.2 MCH 30.4 MCHC 34.8 RDW 13.4 Plt Count 262 MPV 9.0 Sodium 141 Potassium 4.0 Chloride 109 H Carbon Dioxide 25 Anion Gap 7 L BUN 9.9 Creatinine 0.8 Est GFR (CKD-EPI)AfAm 87.18 Est GFR (CKD-EPI)NonAf 75.22 Random Glucose 103 Calcium 8.7 Total Bilirubin 0.6 AST 12 L ALT 13 Alkaline Phosphatase 75 Troponin I < 0.02 Total Protein 6.8 Albumin 3.7 Current Medications Generic Name Dose Route Start Last Admin Trade Name Freq PRN Reason Stop Dose Admin Amlodipine Besylate 10 mg 12/19/18 10:00 12/20/18 08:08 Norvasc - PO 10 mg DAILY EDUIN Administration Atenolol 100 mg 12/19/18 10:00 12/19/18 12:38 Tenormin - PO 100 mg DAILY EDUIN Administration Enoxaparin Sodium 40 mg 12/19/18 10:00 12/19/18 12:30 Lovenox - SQ 40 mg DAILY EDUIN Administration Fenofibric Acid 45 mg 12/19/18 22:00 12/19/18 22:09 Trilipix - PO 45 mg HS EDUIN Administration Gabapentin 600 mg 12/19/18 10:00 12/19/18 21:57 Neurontin - PO 600 mg BID EDUIN Administration Nitroglycerin 0.4 mg 12/19/18 11:05 Nitrostat - SL Q5M PRN FOR CHEST PAIN Pantoprazole Sodium 40 mg 12/19/18 10:00 12/19/18 12:37 Protonix - PO 40 mg DAILY EDUIN Administration Home Medications Medication Instructions Recorded Amlodipine Besylate [Norvasc -] 10 mg PO DAILY 12/11/18 Atenolol [Tenormin -] 100 mg PO DAILY 12/11/18 Gabapentin 600 mg PO BID 12/19/18 Pantoprazole Sodium 40 mg PO DAILY 12/19/18 Lidocaine 5% Patch [Lidoderm Patch 1 patch TP DAILY 12/20/18 -] Potassium Chloride 10 meq PO DAILY 12/20/18 ASSESSMENT/PLAN: 68 year old female with history of HTN, HLD, OA, PUD (recently diagnosed on EGD) , presents with non-specific chest pain, appears to be related to food intake. She was recently diagnosed with PUD and prescribed PPI but has not been fully compliant. 1. Atypical Chest Pain, with associated SOB - intermittent, related to food intake, likely due to PUD CTA chest - no PE, no acute cardiopulmonary findings. TropI neg x 3, ECG - SR, no acute changes. Echo shows normal Ef and normal wall motion. Cardio consulted - recommends MIBI. Resumed on PPI as prescribed by GI. Stable for discharge if MIBI negative. 2. Hypokalemia - repleted. 3. HTN - continue Atenolol, Norvasc. 4. HLD - continue Fenofibrate. 5. Abnormal Gait - chronic. CT Head - no acute or chronic findings. for out- patient Neurology referral. PT eval. DVT Px - Lovenox SQ
[2018-12-20] MEDS: GABAPENTIN 300 MG CAPSULE (FP) PO SCH (15:20)
[2018-12-20] MEDS: ATENOLOL 50 MG TABLET (FP) PO SCH (15:20)
[2018-12-20] MEDS: PANTOPRAZOLE 40 MG TABLET (FP) PO SCH (15:20)
[2018-12-20] MEDS: ENOXAPARIN NA (PORCINE) 40 MG/0.4 ML DISP.SYRIN SQ SCH (15:21)
[2018-12-20 15:22] VITALS: BP 144/60; PULSE 67; TEMP 98
--- NOTE | 2018-12-20 15:43 | PN ---
Progress Note, Physician History of Present Illness: 68-year-old female with intermittent chest pains, right now left status post endoscopy 1 week ago Due to patient's history of hypertension and patient's age she will be held for observation A CTA of the chest has been ordered due to dyspnea noted on exertion in the emergency department Plan to admit to medical service - Current Medication List Current Medications: Active Medications Amlodipine Besylate (Norvasc -) 10 mg PO DAILY [facility] Last Admin: 12/20/18 08:08 Dose: 10 mg Atenolol (Tenormin -) 100 mg PO DAILY [facility] Last Admin: 12/20/18 15:20 Dose: 100 mg Enoxaparin Sodium (Lovenox -) 40 mg SQ DAILY [facility] Last Admin: 12/20/18 15:21 Dose: 40 mg Fenofibric Acid (Trilipix -) 45 mg PO HS [facility] Last Admin: 12/19/18 22:09 Dose: 45 mg Gabapentin (Neurontin -) 600 mg PO BID [facility] Last Admin: 12/20/18 15:20 Dose: 600 mg Nitroglycerin (Nitrostat -) 0.4 mg SL Q5M PRN PRN Reason: FOR CHEST PAIN Pantoprazole Sodium (Protonix -) 40 mg PO DAILY [facility] Last Admin: 12/20/18 15:20 Dose: 40 mg - Objective Vital Signs: Vital Signs Temperature 98.0 F 12/20/18 14:00 Pulse Rate 67 12/20/18 14:00 Respiratory Rate 18 12/20/18 08:14 Blood Pressure 144/60 12/20/18 14:00 O2 Sat by Pulse Oximetry (%) 98 12/20/18 01:00 Labs: CBC, BMP 12/20/18 06:30 12/20/18 06:30 INR, PTT INR 1.00 (0.83-1.09) 12/19/18 04:30 Problem List - Problems (1) Obesity (BMI 30.0-34.9) Code(s): E66.9 - OBESITY, UNSPECIFIED (2) HTN (hypertension) Code(s): I10 - ESSENTIAL (PRIMARY) HYPERTENSION (3) Chest pain Assessment/Plan: TNI < 0.02 x 3 EKC: NSR; nonspecific T waves Lexiscan MIBI: no ischemia. From cardiac standpoint, pt may be discharged home and followed as outpt. The importance of diet change (antonio loves "junk food"), weight loss, and increase in exercise was empahsizes. Her son, Miguelito, was present. Code(s): R07.9 - CHEST PAIN, UNSPECIFIED Qualifiers: Chest pain type: unspecified Qualified Code(s): R07.9 - Chest pain, unspecified (4) Abdominal pain Code(s): R10.9 - UNSPECIFIED ABDOMINAL PAIN (5) Shoulder pain Code(s): M25.519 - PAIN IN UNSPECIFIED SHOULDER Qualifiers: Chronicity: acute Laterality: left Qualified Code(s): M25.512 - Pain in left shoulder
--- NOTE | 2018-12-20 16:12 | DS ---
Physical Exam: SUBJECTIVE: Patient seen and examined. No acute events overnight. Does not complain of any chest pain or difficulty breathing. OBJECTIVE: Vital Signs Period Temp Pulse Resp BP Sys/White Pulse Ox Last 24 Hr 97.9 F-98.4 F 62-71 17-18 119-160/60-83 98-98 PHYSICAL EXAM GENERAL: The patient is awake, alert, and fully oriented, in no acute distress. HEAD: Normal with no signs of trauma. EYES: PERRL, extraocular movements intact, sclera anicteric, conjunctiva clear. ENT: Ears normal, nares patent, oropharynx clear without exudates, moist mucous membranes. NECK: Trachea midline, full range of motion, supple. LUNGS: Breath sounds equal, clear to auscultation bilaterally, no wheezes, no crackles, no accessory muscle use. HEART: Regular rate and rhythm, S1, S2 without murmur, rub or gallop. ABDOMEN: Soft, nontender, nondistended, normoactive bowel sounds, no guarding, no rebound, no hepatosplenomegaly, no masses. EXTREMITIES: 2+ pulses, warm, well-perfused, no edema. NEUROLOGICAL: Cranial nerves II through XII grossly intact. Normal speech, gait not observed. PSYCH: Normal mood, normal affect. SKIN: Warm, dry, normal turgor, no rashes or lesions noted. LABS Laboratory Results - last 24 hr 12/19/18 12/20/18 12/20/18 16:35 06:30 06:30 WBC 8.1 RBC 4.35 Hgb 13.2 Hct 37.9 MCV 87.2 MCH 30.4 MCHC 34.8 RDW 13.4 Plt Count 262 MPV 9.0 Sodium 141 Potassium 4.0 Chloride 109 H Carbon Dioxide 25 Anion Gap 7 L BUN 9.9 Creatinine 0.8 Est GFR (CKD-EPI)AfAm 87.18 Est GFR (CKD-EPI)NonAf 75.22 Random Glucose 103 Calcium 8.7 Total Bilirubin 0.6 AST 12 L ALT 13 Alkaline Phosphatase 75 Troponin I < 0.02 Total Protein 6.8 Albumin 3.7 HOSPITAL COURSE: Date of Admission:12/19/18 Patient is a 68 female wiht past medical history of HTN, HLD, PUD, arthritis presented with chest pain and was admitted to rule out ACS. Pt's EKG showed NSR , no ST elevations or ischemic changes. Serial troponins were negative. Pt received an echo which showed normal size and function. Cardiology (Dr. Dean) was consulted and recommended a stress test. Pt received MIBI stress test which did not show any signs of ischemia. On interview, she reported that she has been experiencing imbalance and one-sided weakness for several months. A CT head was ordered which did not show any signs of acute intracranial pathology. She is clinically stable to be discharged with referrals to follow up with cardiology and neurology. EKG: NSR, no st elevations or ischemic changes Echo: normal LV function, mild MR and TR MIBI Stress test: no ischemia CT head: no intracranial pathology Date of Discharge: 12/20/18 Minutes to complete discharge: 45 Discharge Summary Problems reviewed: Yes Reason For Visit: CHEST PAIN Current Active Problems Chest pain (Acute) HTN (hypertension) (Acute) Obesity (BMI 30.0-34.9) (Acute) Condition: Stable - Instructions Diet, Activity, Other Instructions: You were admitted to the hospital for chest pain. You received an EKG, an ultrasound of your heart, and a stress test which did not show any signs of active heart disease. You should follow up with your senior cost analyst, Dr. Dean, in one week. While you were here, you reported that you have been experiencing imbalance and weakness when walking. We ordered a CT of your head which did not show any signs of disease. You should follow up with a neurologist, Dr. Boateng, in one week for further evaluation. We provided you with a referral. You should follow up with your primary care provider in one week. Resume all home medications as prescribed. Return to the emergency department if you experience any chest pain, difficulty breathing, weakness, or any other symptoms. Referrals: Mary Dietrich [Primary Care Provider] - Marcelino Boateng MD [Staff Physician] - Dipesh Dean MD [Staff Physician] - Disposition: HOME - Home Medications Comprehensive Discharge Medication List: Ambulatory Orders Amlodipine Besylate [Norvasc -] 10 mg PO DAILY 12/11/18 Atenolol [Tenormin -] 100 mg PO DAILY 12/11/18 Gabapentin 600 mg PO BID 12/19/18 Pantoprazole Sodium 40 mg PO DAILY 12/19/18 Lidocaine 5% Patch [Lidoderm -] 1 patch TP DAILY 12/20/18 Potassium Chloride 10 meq PO DAILY 12/20/18 This patient is new to me today: Yes Date on this admission: 12/20/18 Emergency Visit: No Critical Care patient: No - Discharge Referral Referred to [facility] Med P.C.: No ATTENDING PHYSICIAN STATEMENT I saw and evaluated the patient. I reviewed the resident's note and discussed the case with the resident. I agree with the resident's findings and plan as documented. SUBJECTIVE: OBJECTIVE: ASSESSMENT AND PLAN:
== END 2018-12-20 17:32 | disposition home or self-care (01) ==
LOC: JER 03:46 → JERBED 08:39 → J4W 21:07
PROC: 3E033GC Introduction of Other Therapeutic Substance into Peripheral Vein, Percutaneous Approach (ICD-10-PCS; principal; 2018-12-19)
PROC: 3E013GC Introduction of Other Therapeutic Substance into Subcutaneous Tissue, Percutaneous Approach (ICD-10-PCS; 2018-12-19)
PROC: 3E0337Z Introduction of Electrolytic and Water Balance Substance into Peripheral Vein, Percutaneous Approach (ICD-10-PCS; 2018-12-19)
DX: R07.89 Other chest pain (principal); R06.02 Shortness of breath; E87.6 Hypokalemia; K27.9 Peptic ulcer, site unspecified, unspecified as acute or chronic, without hemorrhage or perforation; I10 Essential (primary) hypertension; E78.5 Hyperlipidemia, unspecified; M19.90 Unspecified osteoarthritis, unspecified site; Z29.8 Encounter for other specified prophylactic measures; K29.00 Acute gastritis without bleeding; R10.9 Unspecified abdominal pain; M25.512 Pain in left shoulder; E66.9 Obesity, unspecified; Z68.34 Body mass index [BMI] 34.0-34.9, adult
CPT/HCPCS: 36415; 70450-TC; 71275-TC; 78452-TC; 80053; 82550; 84484; 85025; 85027; 85610; 85730; 93005; 93010; 93017; 93306-TC; 96365; 96372; 96375; 97116-GP; 97161-GP; 99285-25; A9502; G0378; J2785; J7030